=== PATIENT | female | born 1955 | race Hispanic/Latino ===

== ENCOUNTER → 2022-09-09 | Day surgery (SDC) | payer MEDICARE ==
[2022-09-07 11:36] LABS: BASOPHILS % 0.5 % (0.0-1.0); EOSINOPHILS # (AUTO) 0.2 (0.0-0.4); EOSINOPHILS % 2.2 % (0.0-6.0); HEMATOCRIT 42.4 % (34.2-44.1); HEMOGLOBIN 13.4 g/dL (12.0-16.0); LYMPHOCYTES # (AUTO) 2.8 (1.0-3.2); LYMPHOCYTES % 31.7 % (18.0-39.1); MEAN CORPUSCULAR HEMOGLOBIN 26.9 pg (28-32); MEAN CORPUSCULAR HGB CONC 31.6 g/dL (31-35); MONOCYTES # (AUTO) 0.6 (0.2-0.8); MONOCYTES % 7.3 % (4.4-11.3); NEUTROPHILS # (AUTO) 5.1 (2.1-6.9); NEUTROPHILS % 58.1 % (38.7-80.0); PLATELET COUNT 218 x10e3/uL (140-360); RED BLOOD COUNT 4.99 x10e6/uL (3.6-5.1); RED CELL DISTRIBUTION WIDTH 15.1 % (11.7-14.4)
[~2022-09-09] MED LIST: CYMBALTA30 MG PO; GABAPENTIN300 MG PO; LEVOTHYROXINE50 MCG PO; LIDOCAINE HCL 2% LOCAL INJ 5 ML SDV VIAL INJ ONE; LIPITOR10 MG PO; LOSARTAN POTAS100 MG PO; METFORMIN HCL500 M2 PO; PROPOFOL IV EMULSION 10 MG/ML 20 ML VIAL ONE; VIT B12 PO
[2022-09-09 09:40] VITALS: BP 126/71
== END | disposition home or self-care (01) ==
LOC: OR 06:24
PROVIDERS: ATTEND Internal Medicine Gastroenterology
DX: Z12.11 Encounter for screening for malignant neoplasm of colon (principal); K63.5 Polyp of colon; K64.8 Other hemorrhoids; K21.9 Gastro-esophageal reflux disease without esophagitis; K76.0 Fatty (change of) liver, not elsewhere classified; E11.9 Type 2 diabetes mellitus without complications; I10 Essential (primary) hypertension; H40.9 Unspecified glaucoma; E07.9 Disorder of thyroid, unspecified; M06.9 Rheumatoid arthritis, unspecified; Z01.810 Encounter for preprocedural cardiovascular examination; Z01.812 Encounter for preprocedural laboratory examination; Z79.84 Long term (current) use of oral hypoglycemic drugs; Z79.899 Other long term (current) drug therapy; Z68.43 Body mass index [BMI] 50.0-59.9, adult; Z86.2 Personal history of diseases of the blood and blood-forming organs and certain disorders involving the immune mechanism
CPT/HCPCS: 36415 ×2; 45385; 82948; 85025; 88305; 88342; 93005; J2001; J2704; 45378

== ENCOUNTER → 2023-11-10 | Day surgery (SDC) | payer MEDICARE ==
[2023-11-03 11:57] LABS: BASOPHILS % 0.5 % (0.0-1.0); EOSINOPHILS # (AUTO) 0.2 (0.0-0.4); EOSINOPHILS % 3.1 % (0.0-6.0); HEMATOCRIT 36.6 % (34.2-44.1); LYMPHOCYTES # (AUTO) 2.1 (1.0-3.2); LYMPHOCYTES % 36.2 % (18.0-39.1); MEAN CORPUSCULAR HEMOGLOBIN 25.7 pg (28-32); MEAN CORPUSCULAR HGB CONC 32.8 g/dL (31-35); MEAN CORPUSCULAR VOLUME 78.4 fL (81-99); MONOCYTES # (AUTO) 0.5 (0.2-0.8); MONOCYTES % 7.8 % (4.4-11.3); NEUTROPHILS # (AUTO) 3.1 (2.1-6.9); NEUTROPHILS % 52.2 % (38.7-80.0); PLATELET COUNT 203 x10e3/uL (140-360); RED BLOOD COUNT 4.67 x10e6/uL (3.6-5.1); RED CELL DISTRIBUTION WIDTH 16.2 % (11.7-14.4); WHITE BLOOD COUNT 5.89 x10e3/uL (4.8-10.8)
[~2023-11-10] MED LIST changes: +DEXMEDETOMIDINE HCL 200 MCG/2 ML VIAL ONE; +OMEPRAZOLE40 MG PO; +VITAMIN D3125 MCG PO
[2023-11-10] MEDS: LACTATED RINGER'S 1,000 ML ONE (07:37)
[2023-11-10 08:15] VITALS: TEMP 97
[2023-11-10 08:35] VITALS: BP 134/74; PULSE 64; RESP 18; O2SAT 97
== END | disposition home or self-care (01) ==
LOC: OR 06:29
PROVIDERS: ATTEND Internal Medicine Gastroenterology
DX: K29.50 Unspecified chronic gastritis without bleeding (principal); K31.A12 Gastric intestinal metaplasia without dysplasia, involving the body (corpus); K21.9 Gastro-esophageal reflux disease without esophagitis; E11.9 Type 2 diabetes mellitus without complications; E03.9 Hypothyroidism, unspecified; M06.9 Rheumatoid arthritis, unspecified; H40.9 Unspecified glaucoma; Z01.810 Encounter for preprocedural cardiovascular examination; Z01.812 Encounter for preprocedural laboratory examination; Z79.84 Long term (current) use of oral hypoglycemic drugs; Z79.899 Other long term (current) drug therapy; Z68.43 Body mass index [BMI] 50.0-59.9, adult; Z86.2 Personal history of diseases of the blood and blood-forming organs and certain disorders involving the immune mechanism
CPT/HCPCS: 36415 ×2; 43239; 82948; 85025; 88305; 88342; 93005; J2001; J2704; J7121